=== PATIENT | female | born 1980 | race Caucasian/White ===

== ENCOUNTER 2017-01-07 03:37 | Emergency (ER) | payer OTHER ==
[2017-01-07 03:44] VITALS: BP 127/82; PULSE 75; TEMP 98.6; BMI 28.1
[2017-01-07] MEDS ORDERED: SODIUM CHLORIDE 0.9% 1000 ML INFUS.BAG IV ONE (03:58)
--- NOTE | 2017-01-07 03:58 | PDOC ---
History of Present Illness - General Chief Complaint: Pain Stated Complaint: ABD PAIN/DIARRHEA - History of Present Illness Initial Comments: 01/07/17 05:54 diarrhea, crampy abd pain and bloating x 3 days no fever, no travel, no abx, no sick contacts, no bad food diarrhea is watery, now causing her to bleed secondary to irritation abd pain is crampy and intermittently severe pmh: denies fhx: noncontrib ros: reviewed and otherwise negative pe: GENERAL: [The patient is awake, alert, and fully oriented, and in no apparent distress.] HEAD: [Normal with no signs of trauma.] EYES: [Pupils equal, round and reactive to light, extraocular movements intact, sclera anicteric, conjunctiva are normal.] ENT: [TMs normal, nares patent, oropharynx clear without exudates. Moist mucous membranes.] NECK: [Normal range of motion, supple without lymphadenopathy, JVD, or masses.] LUNGS: [Breath sounds equal, clear to auscultation bilaterally. No wheezes, and no crackles.] HEART: [Regular rate and rhythm, normal S1 and S2 without murmur, rub or gallop.] ABDOMEN: [Soft, nontender, normoactive bowel sounds. No guarding, no rebound. No masses appreciated.] EXTREMITIES: [Normal range of motion, no edema. No clubbing or cyanosis. No cords, erythema, or tenderness.] NEUROLOGICAL: [Cranial nerves II through XII grossly intact. Normal speech, normal gait.] PSYCH: [Normal mood, normal affect.] SKIN: [Warm, Dry, normal turgor, no rashes or lesions noted.] ap diarrheal illness fluids check lytes analgesia Past History - Past Medical History Allergies/Adverse Reactions: Allergies Allergy/AdvReac Type Severity Reaction Status Date / Time No Known Allergies Allergy Unverified 01/07/17 03:38 Home Medications: Ambulatory Orders NK [No Known Home Medication] 01/07/17 COPD: No - Suicide/Smoking/Psychosocial Hx Smoking History: Never smoked *Physical Exam - Vital Signs Last Vital Signs Temp Pulse Resp BP Pulse Ox 98.6 F 75 16 127/82 100 01/07/17 03:42 01/07/17 03:42 01/07/17 03:42 01/07/17 03:42 01/07/17 03:42 ED Treatment Course - LABORATORY CBC & Chemistry Diagram: 01/07/17 04:07 01/07/17 04:07 *DC/Admit/Observation/Transfer Diagnosis at time of Disposition: Diarrhea Qualifiers: Diarrhea type: unspecified type Qualified Code(s): R19.7 - Diarrhea, unspecified - Discharge Dispostion Disposition: HOME Condition at time of disposition: Stable - Referrals Referrals: Camron Méndez MD [Primary Care Provider] - - Patient Instructions Additional Instructions: 1) Keep yourself well hydrated 2) Gentle foods like rice, chicken broth, bananas 3) Immodium - Post Discharge Activity
[2017-01-07 04:36] LABS: BASOPHIL 0.5 % (0-2.0); MCHC 34.3 g/dl (32.0-36.0); MEAN CELL VOLUME 87.5 fl (80-96); MEAN PLT VOLUME 7.3 fl (7.5-11.1); NEUTROPHILS 61.5 % (42.8-82.8); PLATELET COUNT 262 K/MM3 (134-434); RDW 12.7 % (11.6-15.6); WHITE BLOOD COUNT 5.6 K/mm3 (4.0-10.0)
[2017-01-07 04:45] LABS: URINE APPEARANCE SLCLOUDY; URINE BILIRUBIN NEGATIVE (NEGATIVE); URINE BLOOD 3+ (NEGATIVE); URINE COLOR LTYELLOW; URINE GLUCOSE (UA) NEGATIVE (NEGATIVE); URINE KETONE NEGATIVE (NEGATIVE); URINE NITRITE NEGATIVE (NEGATIVE); URINE PROTEIN NEGATIVE (NEGATIVE); URINE UROBILINOGEN NEGATIVE mg/dL (0.2-1.0)
[2017-01-07 04:55] LABS: URINE RBC 233 /hpf (0-3)
[2017-01-07 04:58] LABS: ALBUMIN 3.2 g/dl (3.4-5.0); ALK PHOS 83 U/L (45-117); ANION GAP 7 (8-16); BILIRUBIN,TOTAL 0.3 mg/dL (0.2-1.0); CALCIUM 7.7 mg/dL (8.5-10.1); CO2 23 mmol/L (21-32); CREATININE 0.6 mg/dL (0.55-1.02); GLUCOSE,RANDOM 93 mg/dL (74-106); SGOT/AST 18 U/L (15-37); SGPT/ALT 40 U/L (12-78); TOT PROT 6.5 g/dl (6.4-8.2)
[2017-01-07] MEDS ORDERED: ONDANSETRON 4 MG/2 ML VIAL IVPB ONE (05:21)
[2017-01-07] MEDS ORDERED: KETOROLAC TROMETHAMINE 15 MG/ML VIAL IVPUSH PRN (05:21)
[2017-01-07] MEDS ORDERED: KETOROLAC TROMETHAMINE 15 MG/ML VIAL ONE (05:22)
[2017-01-07] MEDS ORDERED: ONDANSETRON 4 MG/2 ML VIAL ONE (05:22)
[2017-01-07 10:27] LABS: URINE LEUK ESTERASE Negative (NEGATIVE)
== END 2017-01-07 06:25 | disposition home or self-care (01) ==
LOC: FER 03:37
PROC: 3E0337Z Introduction of Electrolytic and Water Balance Substance into Peripheral Vein, Percutaneous Approach (ICD-10-PCS; principal; 2017-01-07)
PROC: 3E0333Z Introduction of Anti-inflammatory into Peripheral Vein, Percutaneous Approach (ICD-10-PCS; 2017-01-07)
PROC: 3E033GC Introduction of Other Therapeutic Substance into Peripheral Vein, Percutaneous Approach (ICD-10-PCS; 2017-01-07)
DX: R19.7 Diarrhea, unspecified (principal)
CPT/HCPCS: 36415; 80053; 81003; 81015; 84703; 85025; 96374; 96375; 99282-25